=== PATIENT | male | born 1945 | race Caucasian/White ===

== ENCOUNTER → 2019-03-15 12:12 | Outpatient (CLI) | payer MEDICARE ==
[2013-05-05 16:18] VITALS: BMI 31.7
[~2019-03-15 12:12] MED LIST: BAYER ASPIRIN325 MG PO; CHLORASEPTIC S180 ML MM; FISH OIL 1,0001 CA1 PO; GLUCOPHAGE1000 MG PO; GLUCOTROL XL 1010 MG PO; LIPITOR10 MG PO; LOTENSIN40 MG PO; MULTI-DAY VITAM1 TAB PO; PERCOCET 10/3251 TA1 PO; TOPROL XL50 MG PO
== END | disposition home or self-care (01) ==
LOC: D.US 12:12
PROVIDERS: ATTEND Family Medicine
DX: M79.661 Pain in right lower leg (principal); M79.662 Pain in left lower leg

== ENCOUNTER → 2019-03-21 13:02 | Outpatient (CLI) | payer MEDICARE ==
[2013-05-05 16:18] VITALS: BMI 31.7
== END | disposition home or self-care (01) ==
LOC: D.CT 13:02
PROVIDERS: ATTEND Family Medicine
DX: I73.9 Peripheral vascular disease, unspecified (principal)

== ENCOUNTER → 2019-11-01 12:47 | Outpatient (CLI) | payer MEDICARE ==
[2013-05-05 16:18] VITALS: BMI 31.7
== END | disposition home or self-care (01) ==
LOC: D.MRI 12:47
PROVIDERS: ATTEND Family Medicine
DX: S49.90XA Unspecified injury of shoulder and upper arm, unspecified arm, initial encounter (principal); M25.512 Pain in left shoulder

== ENCOUNTER 2019-11-15 08:00 | Outpatient (CLI) | payer MEDICARE ==
[~2019-11-15 08:00] MED LIST changes: +METOPROLOL TART50 MG PO; -TOPROL XL50 MG PO
[2019-11-15] MEDS ORDERED: ASPIRIN EC81 M1 PO (08:55)
[2019-11-15] MEDS ORDERED: PROSCAR5 MG PO (08:57)
[2019-11-15] MEDS ORDERED: JARDIANCE10 MG PO (08:57)
[2019-11-15] MEDS ORDERED: FLOMAX0.4 MG PO (08:58)
[2019-11-15] MEDS ORDERED: GEMFIBROZIL600 MG PO (08:58)
[2019-11-15] MEDS ORDERED: CILOSTAZOL50 MG PO (08:58)
[2019-11-15] MEDS ORDERED: CRESTOR10 MG PO (08:59)
[2019-11-21 07:26] VITALS: BMI 30.9
== END 2019-11-15 08:01 | disposition home or self-care (01) ==
LOC: D.OPS 08:00
PROVIDERS: ATTEND Orthopaedic Surgery
DX: Z01.810 Encounter for preprocedural cardiovascular examination (principal); Z18.11 Retained magnetic metal fragments; Z01.812 Encounter for preprocedural laboratory examination

== ENCOUNTER 2019-11-21 05:54 | Day surgery (SDC) | payer MEDICARE ==
--- NOTE | 2019-11-15 08:49 | NUR ---
BRANT NOTE: T97.2 P86 R20 BP 111/72 [id number] PATIENT REPORTS TAKING CILOSTAZOL 50MG BID WITH LAST DOSE TODAY. STATES "I WAS NOT TOLD TO STOP TAKING IT & DON'T KNOW WHAT I'M TAKING IT FOR". ALKA AT DR. ORTIZ'S OFFICE NOTIFIED OF ABOVE. STATES TO INFORM PATIENT SURGERY WILL NEED TO BE RESCHEDULED & SHE WILL PHONE PATIENT WITH FURTHER INSTRUCTIONS REGARDING WHEN TO STOP CILOSTAZOL & WHAT DATE SURGERY WILL BE. PATIENT & INFORMED OF ABOVE & STATE UNDERSTANDING OF SAME.
[2019-11-15 09:17] LABS: HEMATOCRIT 42.9 % (42.0-54.0); HEMOGLOBIN 14.6 g/dL (13.5-17.5); MCH 29.9 pg (26.0-34.0); MCV 87.7 fL (80.0-100.0); MEAN PLATELET VOLUME 9.6 fL (7.4-10.4); RBC 4.89 10x6/uL (4.20-6.10); RDW 12.9 % (11.5-14.5); WBC 6.5 10x3/uL (4.8-10.8)
[2019-11-15 09:19] LABS: ANION GAP 14.6 mmol/L (8-16); CALCIUM 9.3 mg/dL (8.5-10.1); CARBON DIOXIDE 24.1 mmol/L (21.0-32.0); CREATININE - SERUM 1.1 mg/dL (0.6-1.3); POTASSIUM - SERUM 4.7 mmol/L (3.5-5.1)
[~2019-11-21] VITALS: Ht 185.4 cm; Wt 108.4 kg
[~2019-11-21 05:54] MED LIST changes: +ASPIRIN EC81 M1 PO; +CILOSTAZOL50 MG PO; +CRESTOR10 MG PO; +FLOMAX0.4 MG PO; +GEMFIBROZIL600 MG PO; +JARDIANCE10 MG PO; +PROSCAR5 MG PO
[2019-11-21 07:26] VITALS: BP 148/90; Ht 185.4 cm; Wt 108.4 kg
[2019-11-21] MEDS ORDERED: PERCOCET 10-321 EAC1 PO (09:43)
== END 2019-11-21 12:05 | disposition home or self-care (01) ==
LOC: D.OPS 05:54
PROVIDERS: Anesthesiology; ATTEND Orthopaedic Surgery
DX: M25.512 Pain in left shoulder (principal); M75.122 Complete rotator cuff tear or rupture of left shoulder, not specified as traumatic; E11.9 Type 2 diabetes mellitus without complications; I10 Essential (primary) hypertension; E78.5 Hyperlipidemia, unspecified; Z79.84 Long term (current) use of oral hypoglycemic drugs; J44.9 Chronic obstructive pulmonary disease, unspecified; Z53.9 Procedure and treatment not carried out, unspecified reason